=== PATIENT | male | born 1995 ===

== ENCOUNTER 2018-12-29 07:21 | Emergency (ER) | payer OTHER ==
[2018-12-29 07:31] VITALS: BP 125/58
--- NOTE | 2018-12-29 08:22 | Emergency Department Report ---
HPI - General Chief Complaint: Allergic Reaction Time Seen by Provider: 12/29/18 08:17 - HPI HPI: is a 23-year-old male who is here status post allergic reaction. Patient believes this is rash happened after eating some shrimp this morning. Patient had a diffuse rash and itchiness and shortness of breath. Patient received 50 mg of IV Benadryl prior to arrival. Patient states his shortness of breath is improved and his itching is improving as well. Patient denies syncope chest pain. Patient denies nausea vomiting abdominal pain as well. ED Past Medical Hx - Past Medical History Previous Medical History?: No - Surgical History Past Surgical History?: No - Social History Smoking Status: Never Smoker Substance Use Type: None - Medications Home Medications: Home Medications Medication Instructions Recorded Confirmed Last Taken Type Famotidine [Pepcid] 20 mg PO BID #20 tablet 12/29/18 Unknown Rx predniSONE [Deltasone] 20 mg PO QDAY #5 tab 12/29/18 Unknown Rx ED Review of Systems ROS: Stated complaint: ALLERGIC REACTION (SHRIMP) Other details as noted in HPI Comment: All other systems reviewed and negative Physical Exam - Physical Exam Vital Signs: Vital Signs 12/29/18 07:29 Temperature 98.5 F Pulse Rate 88 Respiratory 18 Rate Blood Pressure 125/58 O2 Sat by Pulse 99 Oximetry General: Patient is alert and oriented 3 in no acute distress. Physical Exam: The patient's heart exam shows normal heart tones. Rest her exam shows lungs are clear to auscultation. ENT exam shows no pharyngeal erythema. Skin exam is normal. Abdomen soft nontender. ED Course Vital Signs 12/29/18 07:29 Temperature 98.5 F Pulse Rate 88 Respiratory 18 Rate Blood Pressure 125/58 O2 Sat by Pulse 99 Oximetry ED Medical Decision Making - Medical Decision Making Patient was monitored here for a rebound of his allergic reaction. Given Solu- Medrol Pepcid. Patient is remained well over the last 2 hours of monitoring. Patient be discharged home at this time. Critical care attestation.: If time is entered above; I have spent that time in minutes in the direct care of this critically ill patient, excluding procedure time. ED Disposition Clinical Impression: Food allergy Allergic reaction Qualifiers: Encounter type: initial encounter Qualified Code(s): T78.40XA - Allergy, unspecified, initial encounter Disposition: DC-01 TO HOME OR SELFCARE Is pt being admited?: No Does the pt Need Aspirin: No Condition: Stable Instructions: Food Allergy (ED) Additional Instructions: Please take 25 mg of Benadryl 3 times a day for the next 3 days Referrals: CHELLE WEAVER MD [Primary Care Provider] - 3-5 Days Time of Disposition: 09:42
[2018-12-29] MEDS ORDERED: SOLU-Medrol IV ONE (08:23)
[2018-12-29] MEDS ORDERED: PEPCID IV ONE (08:23)
== END 2018-12-29 10:07 | disposition home or self-care (01) ==
LOC: ED 07:21
DX: T78.1XXA Other adverse food reactions, not elsewhere classified, initial encounter (principal); X58.XXXA Exposure to other specified factors, initial encounter; Z91.013 Allergy to seafood
CPT/HCPCS: 96374; 96375; 99283; J2930